=== PATIENT | male | born 1980 | race Caucasian/White ===

== ENCOUNTER 2023-12-14 20:00 | Emergency (ER) | payer OTHER ==
[~2023-12-14] VITALS: Ht 177.8 cm; Wt 74.8 kg
[2023-12-14 20:23] VITALS: BP_SYST 113; PULSE 78; RESP 14; TEMP 97.9; O2SAT 98
[2023-12-14 21:00] LABS: BILIRUBIN,URINE NEGATIVE (NEGATIVE); BLOOD, URINE 3+ (NEGATIVE); GLUCOSE,URINE NEGATIVE (NEGATIVE); KETONES,URINE NEGATIVE (NEGATIVE); LEUKOCYTE ESTERASE ,URINE 3+ (NEGATIVE); NITRITE, URINE NEGATIVE (NEGATIVE); PROTEIN URINE NEGATIVE (NEGATIVE); UROBILINOGEN,URINE 0.2 (0.2-1.0)
[2023-12-14 21:05] LABS: CLARITY/URINE HAZY (CLEAR); COLOR,URINE STRAW (YELLOW)
[2023-12-14 21:06] LABS: BACTERIA,URINE FEW /HPF (None Seen); MUCUS,URINE None Seen /LPF (None Seen); RBC,URINE 0-3 /HPF (0-3); WBC,URINE 50-80 /HPF (0-3)
[2023-12-14] MEDS ORDERED: SULF1TAB48 PO (21:20)
[2023-12-14] MEDS: SULFAMETHOXAZOLE/TRIMETHOPR DS 1 TABLET PO ONE (21:55)
== END 2023-12-14 21:58 | disposition home or self-care (01) ==
LOC: SED 20:00
DX: N39.0 Urinary tract infection, site not specified (principal); R30.9 Painful micturition, unspecified; N48.89 Other specified disorders of penis; Z79.899 Other long term (current) drug therapy
CPT/HCPCS: 81000; 81001; 81015; 87086; 99283